=== PATIENT | female | born 1985 | race Caucasian/White ===

== ENCOUNTER 2020-07-17 05:40 | Day surgery (SDC) | payer BC ==
[2020-07-16 17:44] LABS: COVID AG,FIA SOURCE NASOPHARYNGEAL
[2020-07-16 17:56] LABS: BASOPHILS % (AUTO) 0.4 % (0.0-2.0); EOSINOPHILS % (AUTO) 0.5 % (1.0-6.0); HEMATOCRIT 38.5 % (36-46); HEMOGLOBIN 12.7 g/dL (12.0-16.0); LYMPHOCYTES % (AUTO) 20.1 % (22.0-44.0); MEAN CORPUSCULAR HEMOGLOBIN 30.5 pg (26.0-34.0); MEAN CORPUSCULAR HGB CONC 33.1 G/dL (31.0-37.0); MEAN CORPUSCULAR VOLUME 92 fL (80-100); MONOCYTES # (AUTO) 0.6 K/uL (0.1-1.0); MONOCYTES % (AUTO) 6.2 % (2.0-9.0); NEUTROPHILS # (AUTO) 7.4 K/uL (1.8-7.7); NEUTROPHILS % (AUTO) 72.8 % (40.0-70.0); PLATELET COUNT (AUTO) 407 K/uL (150-450); RED BLOOD CELL COUNT(AUTO) 4.18 MIL/uL (4.00-5.20); RED CELL DISTRIBUTION WIDTH 13.8 % (11.5-14.5)
[2020-07-16 18:11] LABS: ANION GAP 13 mmol/L (8-16); CALCIUM, TOTAL 8.9 mg/dL (8.8-10.5); CARBON DIOXIDE 25 mmol/L (22-29); CHLORIDE 103 mmol/L (98-107); GLOMERULAR FILTR. RATE CALC > 60 mL/min (>60); GLUCOSE,RANDOM 72 mg/dL (70-110); POTASSIUM 3.5 mmol/L (3.5-5.1); SODIUM SERUM 141 mmol/L (136-145); UREA NITROGEN, BLOOD 7 mg/dL (7-18)
[~2020-07-17 05:40] MED LIST: RINGERS SOLUTION,LACTATED 1,000 ML IV ONE
[2020-07-17] MEDS ORDERED: SUCCINYLCHOLINE CHLORIDE 20 MG/ML 10 ML VIAL IVP ONE (05:41)
[2020-07-17] MEDS ORDERED: ONDANSETRON HCL 4 MG/2 ML VIAL IVP ONE (05:41)
[2020-07-17] MEDS ORDERED: MIDAZOLAM HCL 2 MG/2 ML VIAL IVP ONE (05:41)
[2020-07-17] MEDS ORDERED: DEXAMETHASONE SOD PHOS 4 MG/ML VIAL IVP ONE (05:41)
[2020-07-17] MEDS ORDERED: LIDOCAINE/PF 2% 5 ML VIAL IM ONE (05:41)
[2020-07-17] MEDS ORDERED: FentaNYL CITRATE PF 100 MCG/2 ML VIAL IVP ONE (05:41)
[2020-07-17] MEDS ORDERED: PROPOFOL 1% 20 ML VIAL IVP ONE (05:41)
[2020-07-17] MEDS ORDERED: RINGERS SOLUTION,LACTATED 1,000 ML IV ONE ×2 (06:00→07:27)
[2020-07-17] MEDS ORDERED: HYDROmorphone 2 MG/ML VIAL IVP PRN (07:45)
[2020-07-17] MEDS ORDERED: FentaNYL CITRATE PF 100 MCG/2 ML VIAL IVP PRN (07:45)
[2020-07-17] MEDS ORDERED: MEPERIDINE-PF 25 MG/ML VIAL IVP PRN (07:45)
[2020-07-17] MEDS ORDERED: OXYGEN THERAPY IH SCH (08:00)
== END 2020-07-17 11:20 | disposition home or self-care (01) ==
LOC: SURGERY 05:40
PROVIDERS: ATTEND Obstetrics & Gynecology Obstetrics
DX: N92.0 Excessive and frequent menstruation with regular cycle (principal); N94.6 Dysmenorrhea, unspecified; Z72.89 Other problems related to lifestyle
CPT/HCPCS: 36415; 58300; 58562; 80048; 84703; 85025; 87426; 88300; C9803; J0330; J1100; J2250; J2405; J2704; J3010; J3490; J7120